=== PATIENT | male | born 1990 | race Two or more races ===

== ENCOUNTER 2017-12-13 19:22 | Inpatient (IN) | payer OTHER ==
[~2017-12-13] VITALS: Ht 167.6 cm; Wt 72.6 kg
[2017-12-14 09:00] VITALS: BP 140/94
--- NOTE | 2017-12-14 09:09 | NUR ---
PT RECEIVED DIRECT ADMIT VIA TRANSPORT TEAM, PLACED ON PB840 VENT W/ SETTINGS PER TRANSPORT RT AC 14 500 40% +5. PT TRACHED W/ PORTEX BIVONA 6, CLEAN, PATENT AND SECURE. BREATH SOUNDS EQUAL, CLEAR, WITH SOME RHONCHI. PT SX'ED AND LAVAGED PRN. VENT IN RED OUTLET, AMBUBAG AT BEDSIDE, DWYER AND HME CHANGED. VENT ALARMS SET AND AUDIBLE. NO RESP DISTRESS NOTED AT THIS TIME. PLAN IS TO CONTINUE W/ CURRENT CARE AND MONITOR FOR CHANGES. Addendum: 12/14/17 at 0913 by NICOLE KOROMA RT Amended: Links added.
--- NOTE | 2017-12-14 09:50 | NUR ---
ACCOUNT AUDITOR INITIAL NOTES RECEIVED PT VIA [facility] FROM [facility], PT CAME [place], PT ON VENT SETTINGS ORDERED BY MD TORRES 14 TV 500 FIO2 40% PEEP 5, SAT ABOVE 97%, BIVONA PORTEX 6, A&O X1-2 EYES OPEN, LUONG CATH DRAINING URINE VIA GRAVITY, ON TELE MON SR HR 76, WOUND PICTURES TAKEN AND PLACED IN CHART, WOUND CONSULT ORDERED, GTUBE AREA CLEANSED AND APPLIED NEW DRESSING, GTUBE CLAMPED, LT HAND 18 G IV SITE INTACT AND PATENT, ANDER MOTHER MAKES MEDICAL DECISIONS [phone], ALL SAFETY MEASURES INITIATED, ALL NEEDS MET, [facility] MATTRESS ON WILL CONTINUE TO MONITOR.
[2017-12-14 12:00] VITALS: BP 107/69
[2017-12-14] MEDS ORDERED: ONDANSETRON HCL/PF 4 MG/2 ML VIAL IVP PRN (12:00)
[2017-12-14] MEDS ORDERED: Z GUARD REMEDY 2 OZ OINT TP PRN (12:00)
[2017-12-14] MEDS ORDERED: MUPIROCIN OINT 2% 22 GM TUBE TP SCH (12:00)
[2017-12-14] MEDS: IV D5/0.45 NACL 1,000 ML IV PRN (12:09)
[2017-12-14] MEDS ORDERED: FEE PK DOSING 1 MIN EA MC ONE (14:22)
--- NOTE | 2017-12-14 15:04 | NUR ---
ABG ATTEMPTED TWICE UNSUCCESSFULLY, MOM AT BEDSIDE ASKED TO STOP. ABG ORDER LATER DC'ED BY MARTIR RIOS PER RN.
[2017-12-14] MEDS: MUPIROCIN OINT 2% 22 GM TUBE TP SCH (15:06)
[2017-12-14] MEDS: VANCOMYCIN 1 GM in IV D5W 250 ML IV SCH ×2 (15:06→22:45)
[2017-12-14] MEDS: ENOXAPARIN SODIUM 40 MG/0.4 ML DISP.SYRIN SQ SCH (15:07)
[2017-12-14 16:00] VITALS: BP 100/68
[2017-12-14 17:01] LABS: CALCIUM, SERUM 8.1 mg/dL (8.5-10.1); CREATININE 0.5 mg/dL (0.6-1.3); POTASSIUM 3.3 mmol/L (3.5-5.1)
--- NOTE | 2017-12-14 18:40 | NUR ---
SOFTWARE DEPLOYMENT ENGINEER NOTES SPOKE WITH DR SANTIAGO GI CONSULT AND STATED WILL COME SEE PT TOMORROW 12/15/17, CALLED AND LEFT MESSAGE TO MOTHER ANDER [phone] REGARDING THE STATUS OF GI DOCTOR.
--- NOTE | 2017-12-14 18:41 | NUR ---
LINE CONSTRUCTION ENGINEER ENDING NOTES PT STABLE WITH NO ACUTE CHANGES, AWAITING WOUND CONSULT AND GI CONSULT, ALL DUE MEDS GIVEN, ALL NEEDS MET, WILL ENDORSE TO PM NURSE.
[2017-12-14 20:00] VITALS: BP 113/70
[2017-12-15] VITALS: BP 109/65
[2017-12-15] MEDS: MUPIROCIN OINT 2% 22 GM TUBE TP SCH ×2 (03:41→15:57)
[2017-12-15 04:00] VITALS: BP 119/72
[2017-12-15] MEDS: IV D5/0.45 NACL 1,000 ML IV PRN ×2 (05:13→16:04)
--- NOTE | 2017-12-15 06:41 | NUR ---
RN NOTE PATIENT RESTED WELL AT NIGHT, NO PAIN OR DISCOMFORT NOTED, PATIENT IS STABLE, ALL SAFETY MEASURES TAKEN, WOUND CARE PROVIDED ORDERED PER MD, WILL ENDORSE TO AM SHIFT FOR ALFREDO
[2017-12-15] MEDS: VANCOMYCIN 1 GM in IV D5W 250 ML IV SCH (06:43)
[2017-12-15 07:15] LABS: BASOPHILS % (AUTO) 0.2 % (0.0-2.0); EOSINOPHILS % (AUTO) 2.9 % (0.0-6.0); HEMATOCRIT 39 % (39-51); HEMOGLOBIN 12.9 g/dL (13.5-17.5); LYMPHOCYTES # (AUTO) 2.2 /CMM (0.8-4.8); LYMPHOCYTES % (AUTO) 31.1 % (20.0-44.0); MEAN CORPUSCULAR HEMOGLOBIN 30 PG (26.0-33.0); MEAN CORPUSCULAR HGB CONC 33 g/dl (31.0-36.0); MEAN CORPUSCULAR VOLUME 89 fL (80-96); MONOCYTES # (AUTO) 1.1 /CMM (0.1-1.30); MONOCYTES % (AUTO) 15.1 % (2.0-12.0); NEUTROPHILS # (AUTO) 3.5 /CMM (1.8-8.9); NEUTROPHILS % (AUTO) 50.7 % (43.0-81.0); PLATELET COUNT (AUTO) 281 /CMM (150-450); RDW COEFFICIENT OF VARIATION 14.6 (11.5-15.0); RED BLOOD CELL COUNT(AUTO) 4.37 MIL/uL (4.5-6.0)
[2017-12-15 07:28] LABS: THYROID STIMULATING HORMONE 5.981 uIU/mL (0.358-3.74)
--- NOTE | 2017-12-15 07:30 | NUR ---
INITIAL NOTES: RECEIVED PT ON BED VENTILATOR DEPENDENT SETTINGS: cONTROL 14, 500, +5 AND 40% PT HAS #6 BIVONA PORTEX TRACH SATURATION ABOVE 97% A&O X1-2 EYES OPEN, LUONG CATH DRAINING URINE VIA GRAVITY, ON TELE MON SR HR 76, WOUND CONSULT ORDERED, GTUBE AREA CLEANSED AND APPLIED NEW DRESSING, GTUBE CLAMPED, LT HAND 18 G IV SITE INTACT AND PATENT, ANDER MOTHER MAKES MEDICAL DECISIONS [phone], ALL SAFETY MEASURES INITIATED, ALL NEEDS METON FLOATATION MATTRESS WILL CONTINUE TO MONITOR.
[2017-12-15 07:48] LABS: ALBUMIN 3.4 g/dL (3.4-5.0); BILIRUBIN,TOTAL 0.3 mg/dL (0.2-1.0); CALCIUM, SERUM 8.3 mg/dL (8.5-10.1); CREATININE 0.5 mg/dL (0.6-1.3); MAGNESIUM 2.1 mg/dL (1.8-2.4); PHOSPHORUS 2.9 mg/dL (2.5-4.9); POTASSIUM 3.4 mmol/L (3.5-5.1); TOTAL PROTEIN, SERUM 8.1 g/dL (6.4-8.2)
[2017-12-15 08:00] VITALS: BP_SYST 109; BP_SYST 120; BP_DIAS 76; BP_DIAS 77
[2017-12-15] MEDS: ENOXAPARIN SODIUM 40 MG/0.4 ML DISP.SYRIN SQ SCH (09:37)
[2017-12-15 10:19] LABS: EOSINOPHILS % (MANUAL) 2 % (0-4); LYMPHOCYTES % (MANUAL) 35 % (16-48); MONOCYTES % (MANUAL) 11 % (0-11.0); NEUTROPHILS % (MANUAL) 52 (42-76)
--- NOTE | 2017-12-15 10:52 | NUR ---
WOUND CARE CONSULT: PT FOLLOWED BY GI FOR G TUBE AREA. DEFER TO GI . PT PRESENTS WITH RASH TO PERINEUM AND INNER BUTTOCKS, PRESENT ON ADMISSION. RECOMMENDATIONS MADE FOR RASH CARE AND SKIN PROTECTION. DISCUSSED WITH NURSING STAFF. PT ON WACO ISOFLEX LOW AIRLOSS BED. WILL SEE PRN. BATES IN AGREEMENT WITH PLAN OF CARE. Addendum: 12/15/17 at 1055 by GAEL GRIFFITH WNDNU Amended: Links added.
[2017-12-15 12:00] VITALS: BP 109/76
[2017-12-15] MEDS ORDERED: POLYVINYL ALCOHOL 15 ML BOTTLE EACHEYE PRN (12:00)
[2017-12-15] MEDS: IPRATROPIUM NEB FS 0.5 MG/2.5 ML AMPUL.NEB NEB SCH ×2 (13:05→20:04)
[2017-12-15] MEDS: ALBUTEROL FS 2.5 MG/0.5 ML VIAL.NEB NEB SCH ×2 (13:05→20:04)
[2017-12-15] MEDS: PANTOPRAZOLE 40 MG VIAL IV SCH (13:08)
[2017-12-15] MEDS: POTASSIUM CL. PREMIX PERIPHER. 50 ML IV SCH ×2 (13:09→14:18)
[2017-12-15] MEDS ORDERED: POTASSIUM CL. PREMIX PERIPHER. 50 ML IV SCH (14:30)
[2017-12-15 16:00] VITALS: BP 118/82
[2017-12-15] MEDS: CLOTRIMAZOLE/BETAMETASONE DIPROPIONATE 15 GM TUBE TP SCH (16:56)
--- NOTE | 2017-12-15 18:43 | NUR ---
CLOSING: PATIENT RESTED WELL TODAY. MOTHER VISITED. PT HAS CONSENT FOR EGD AND G-TUBE PLACEMENT . LUONG DRAING WELL PIV IN USE NO REDNESS OR SWELLING NOTED. WILL ENDORSE CARE TO SENIOR PRODUCT MARKETING MANAGER RN, NO PAIN OR DISCOMFORT NOTED, PATIENT IS STABLE, ALL SAFETY MEASURES TAKEN, WOUND CARE PROVIDED ORDERED PER MD.
[2017-12-15 20:00] VITALS: BP 127/80
[2017-12-16] VITALS: BP 100/65
[2017-12-16] MEDS: ALBUTEROL FS 2.5 MG/0.5 ML VIAL.NEB NEB SCH ×4 (00:55→20:24)
[2017-12-16] MEDS: IPRATROPIUM NEB FS 0.5 MG/2.5 ML AMPUL.NEB NEB SCH ×4 (00:55→20:24)
[2017-12-16 04:00] VITALS: BP 107/78
[2017-12-16] MEDS: MUPIROCIN OINT 2% 22 GM TUBE TP SCH ×2 (04:00→15:52)
[2017-12-16] MEDS: IV D5/0.45 NACL 1,000 ML IV PRN (05:30)
--- NOTE | 2017-12-16 06:43 | NUR ---
RN NOTE NO ACUTE CHANGES ON MY SHIFT, PATIENT RESTED WELL AT NIGHT, WOUND CARE PROVIDED ORDERED, PATIENT IS STABLE, ALL SAFETY MEASURES TAKEN, WILL ENDORSE TO AM SHIFT FOR ALFREDO
[2017-12-16 07:51] LABS: CALCIUM, SERUM 8.3 mg/dL (8.5-10.1); CREATININE 0.4 mg/dL (0.6-1.3); POTASSIUM 3.2 mmol/L (3.5-5.1)
--- NOTE | 2017-12-16 07:53 | NUR ---
HOG SAWYER NOTES: RECEIVED PT ON BED ASLEEP. NO APPARENT DISTRESS NOTED. NO FACIAL GRIMACING OR ANY SIGNS OF PAIN NOTED. ON MECH VENT, SETTINGS ORDERED, SATURATING WELL. NO SOB NOTED. IV ON LEFT HAND INTACT AND PATENT WITH IVF D5 1/2NS AT 75ML/HR, INFUSING WELL. LUONG CATH INTACT AND PATENT WITH CLEAR YELLOW URINE DRAINING. KEPT CLEAN, DRY AND COMFORTABLE. WILL CONTINUE TO MONITOR PT.
[2017-12-16 08:00] VITALS: BP 116/70
[2017-12-16 08:09] LABS: BASOPHILS % (AUTO) 0.5 % (0.0-2.0); EOSINOPHILS % (AUTO) 2.8 % (0.0-6.0); HEMATOCRIT 35 % (39-51); HEMOGLOBIN 11.6 g/dL (13.5-17.5); LYMPHOCYTES # (AUTO) 1.5 /CMM (0.8-4.8); LYMPHOCYTES % (AUTO) 30.4 % (20.0-44.0); MEAN CORPUSCULAR HEMOGLOBIN 29 PG (26.0-33.0); MEAN CORPUSCULAR HGB CONC 33 g/dl (31.0-36.0); MEAN CORPUSCULAR VOLUME 89 fL (80-96); MONOCYTES # (AUTO) 0.8 /CMM (0.1-1.30); MONOCYTES % (AUTO) 16.7 % (2.0-12.0); NEUTROPHILS # (AUTO) 2.5 /CMM (1.8-8.9); NEUTROPHILS % (AUTO) 49.6 % (43.0-81.0); PLATELET COUNT (AUTO) 251 /CMM (150-450); RDW COEFFICIENT OF VARIATION 14.1 (11.5-15.0); RED BLOOD CELL COUNT(AUTO) 3.95 MIL/uL (4.5-6.0); WHITE BLOOD COUNT (AUTO) 5.1 K/uL (4.3-11.0)
--- NOTE | 2017-12-16 08:11 | NUR ---
LANDING WORKER NOTES: ON TELE MONITOR SINUS [place] HR 54BPM.
[2017-12-16] MEDS: ENOXAPARIN SODIUM 40 MG/0.4 ML DISP.SYRIN SQ SCH (08:32)
[2017-12-16] MEDS: CLOTRIMAZOLE/BETAMETASONE DIPROPIONATE 15 GM TUBE TP SCH ×3 (08:34→16:10)
--- NOTE | 2017-12-16 08:42 | NUR ---
DIRECTOR CAMP NOTES: LOVENOX NOT GIVEN BECAUSE PT IS SCHEDULED FOR SURGERY TODAY.
[2017-12-16] MEDS: VANCOMYCIN 0.75 GM in IV NS 0.9% 250 ML IV SCH ×2 (09:14→16:09)
[2017-12-16] MEDS: POTASSIUM CL. PREMIX PERIPHER. 50 ML IV SCH ×4 (11:20→14:27)
[2017-12-16] MEDS: PANTOPRAZOLE 40 MG VIAL IV SCH (11:59)
[2017-12-16 12:00] VITALS: BP 117/76
--- NOTE | 2017-12-16 14:08 | NUR ---
PT AI'D ON MECHANICAL VENT WITH CHARTED SETTINGS. TXS GIVEN AND NO ADVERSE REACTION NOTED. SX DONE T/O SHIFT. PT AI PATENT AND SECURE. AMBU BAG AT BEDSIDE. VENT PLUGGED INTO RED OUTLET. ALARMS ARE ON AND AUDIBLE. WILL CONTINUE TO MONITOR. Addendum: 12/16/17 at 1408 by JAYE BAUTISTA RT Amended: Links added.
[2017-12-16 16:00] VITALS: BP 107/66
--- NOTE | 2017-12-16 18:56 | NUR ---
TELECOM ENGINEER NOTES: NO ACUTE CHANGES THROUGHOUT THE SHIFT. NO FACIAL GRIMACING OR ANY SIGNS OF PAIN NOTED. NO SOB, SATURATING WELL. LUONG CATH INTACT AND PATENT WITH CLEAR YELLOW URINE DRAINING. KEPT CLEAN, DRY AND COMFORTABLE. WILL ENDORSE TO PROJECT DEVELOPMENT COORDINATOR FOR CONTINUITY OF CARE
--- NOTE | 2017-12-16 19:30 | NUR ---
RN initial notes Received patient with no acute distress. on Vent support, tolerating current settings well. Airway suctioned as needed, small amount of frothy, white sputum was suctioned. GT clamped, awaiting EGD with PEG placement as ordered by Dr. Pizano. Patient noted to be SR-SB at 50-60s. Skin assessment done, noted patient with lower back rashes, wound on Bilateral anterior foot noted. Pictures taken and filed in chart. will order wound consult for further eval. Patient to be turned [id number] and prn for comfort. L hand g18, intact and patent, IVF as ordered. F/C intact, draining with pale, yellow urine. Will continue to monitor. closely monitored.
[2017-12-16 20:00] VITALS: BP 109/60
[2017-12-17] VITALS: BP 116/55
[2017-12-17] MEDS: VANCOMYCIN 0.75 GM in IV NS 0.9% 250 ML IV SCH ×2 (00:12→08:57)
[2017-12-17] MEDS: IV D5/0.45 NACL 1,000 ML IV PRN ×2 (01:30→17:57)
[2017-12-17] MEDS: IPRATROPIUM NEB FS 0.5 MG/2.5 ML AMPUL.NEB NEB SCH ×4 (01:37→19:47)
[2017-12-17] MEDS: ALBUTEROL FS 2.5 MG/0.5 ML VIAL.NEB NEB SCH ×4 (01:39→19:47)
[2017-12-17 04:00] VITALS: BP 99/63
[2017-12-17] MEDS: MUPIROCIN OINT 2% 22 GM TUBE TP SCH ×2 (05:14→15:32)
--- NOTE | 2017-12-17 06:23 | NUR ---
RN CLOSING NOTE Sinus Darvin overnight. Patients HR noted to be in the 40s at rest/sleeping, goes up to 50-60s with stimuli. wound treatment rendered, skin barrier applied for skin management. trach care done, airway kept patent and clear. F/C intact and draning well. IVF as ordered. turned and repositioned [id number] and prn for comfort. needs anticipated. safety and comfort ensured. will endorse accordingly for continuity of care.
--- NOTE | 2017-12-17 07:00 | NUR ---
RN NOTES RECEIVED PT ON BED, OBTUNDED, VENT/TRACH DEPENDENT, TOLERATING CURRENT VENT SETTING WELL, TRACH CARE DONE, NO DISTRESS NOTED, ON TELE , SB , HR IN HIGH 40'S, LUONG DRINING TO GRAVITY , PT IS NPO, GT CLAMPED, D51/2 NS AT 75CC/HR RUNNING VIA L HAND IV ITE G 18, SITE CLEAN , DRY, INTACT, SR UP x3, CALL LIGHT WITHIN EASY REACH, BED LOCKED AND IN LOWEST POSITION, CONTINUE TO MONITOR.
--- NOTE | 2017-12-17 07:01 | NUR ---
WOUND CARE CONSULT PATIENT SEEN AND SKIN INTEGRITY ASSESSMENT DONE. PLEASE SEE MAINTENANCE MILLWRIGHT ASSESSMENT IN PCS FOR TODAY. TREATMENT RECOMMENDATIONS MADE. ALL DISCUSSED WITH SUCTION PLATE CARRIER CLEANER AND PRIMARY RN AT THE BEDSIDE. ALL PRESSURE ULCER PREVENTION MEASURES ARE NOTED TO BE IN PLACE AT THIS TIME. PATIENT CONTINUES ON ISOFLEX LOW AIRLOSS SPECIALTY BED. PT NOTED TO HAVE SEVERE FOOT DROP AND DEFORMITY OF BILATERAL FEET. Addendum: 12/17/17 at 0705 by KATE PHILIPPE WNDNU Amended: Links added.
[2017-12-17 07:29] LABS: CALCIUM, SERUM 8.3 mg/dL (8.5-10.1); CREATININE 0.4 mg/dL (0.6-1.3); POTASSIUM 3.6 mmol/L (3.5-5.1)
--- NOTE | 2017-12-17 07:35 | NUR ---
RT RECEIVED PT TRACH VENT DEPENDENT WITH NOTED SETTINGS. RELEASE AND TECHNICAL RECORDS CLERK DONE AND TRACH IS SECURE. VENT ALARMS CHECKED AND AUDIBLE. VENT PLUGGED IN RED OUTLET. AMBU BAG NOTED HOB. BILATERAL B/S RHONCHI. SX WITH MOD THK WHITE/NICOLE SECRETIONS. TOLERATING SETTINGS WELL, BREATHING TX GIVEN. NO SOB OR RESP DISTRESS NOTED AT THIS TIME, WILL CONTINUE TO MONITOR T/O SHIFT.
[2017-12-17 07:42] LABS: INR 1.02 (0.87-1.13)
[2017-12-17 08:00] VITALS: BP 117/82
[2017-12-17] MEDS: ENOXAPARIN SODIUM 40 MG/0.4 ML DISP.SYRIN SQ SCH (08:09)
--- NOTE | 2017-12-17 09:00 | NUR ---
RN NOTES ON TELE ABNORMAL HEART RYTHEM NOTED, DR. GAN AND GARRY RENAE SAUSAGE TIER NOTIFED, CONTINUE TO MONITOR.
[2017-12-17] MEDS: BACITRACIN/POLYMYXIN B 15 GM TUBE TP SCH (09:26)
[2017-12-17] MEDS: CLOTRIMAZOLE/BETAMETASONE DIPROPIONATE 15 GM TUBE TP SCH ×3 (09:27→21:40)
[2017-12-17] MEDS: PANTOPRAZOLE 40 MG VIAL IV SCH (11:36)
[2017-12-17] MEDS ORDERED: ETOMIDATE 2 MG/ML VIAL ONE (11:54)
[2017-12-17 12:00] VITALS: BP 134/76
[2017-12-17] MEDS ORDERED: JEVITY 1.2 CAL 1,000 ML BOTTLE GT PRN (15:00)
--- NOTE | 2017-12-17 15:31 | NUR ---
RN NOTES TF RESTARTED AT 30CC/HR PER PER DR ORELLANA ORDER . CONTINUE TO MONITOR .
[2017-12-17 16:00] VITALS: BP_SYST 125; BP_SYST 132; BP_DIAS 75; BP_DIAS 77
[2017-12-17] MEDS: VANCOMYCIN 0.75 GM in IV D5W 250 ML IV SCH (17:59)
--- NOTE | 2017-12-17 18:38 | NUR ---
RN NOTES TOLERANT TF AT 30CC/HR WELL , NO LEAKAGE NOTED AT THE GT SITE AT THIS TIME , D51/2NS AT 75CC/HR RUNNING WELL, SR UP x3, CALL LIGHT WITHIN EASY REACH, BED LOCKED AND IN LOWEST POSITION, WILL ENDOSE TO ADMITTING COORDINATOR NURSE FOR CONTINUITY OF CARE .
[2017-12-17 20:00] VITALS: BP_SYST 108; BP_SYST 127; BP_DIAS 37; BP_DIAS 82
--- NOTE | 2017-12-17 20:00 | NUR ---
RN initial notes Received patient with no acute distress. on Vent support, tolerating current settings well. Airway suctioned as needed, small amount of frothy, white sputum was suctioned. GT clamped, awaiting EGD with PEG placement as ordered by Dr. Pizano. Patient noted to be SR-SB at 50-60s. Skin assessment done, noted patient with lower back rashes, wound on Bilateral anterior foot noted. Pictures taken and filed in chart. will order wound consult for further eval. Patient to be turned [id number] and prn for comfort. L hand g18, intact and patent, IVF as ordered. F/C intact, draining with pale, yellow urine. Will continue to monitor. closely monitored.
[2017-12-18] VITALS: BP 107/82
[2017-12-18] MEDS: IPRATROPIUM NEB FS 0.5 MG/2.5 ML AMPUL.NEB NEB SCH ×2 (01:15→07:35)
[2017-12-18] MEDS: ALBUTEROL FS 2.5 MG/0.5 ML VIAL.NEB NEB SCH ×2 (01:15→07:35)
[2017-12-18] MEDS: MUPIROCIN OINT 2% 22 GM TUBE TP SCH ×2 (03:49→15:18)
[2017-12-18 04:00] VITALS: BP_SYST 108; BP_SYST 98; BP_DIAS 65; BP_DIAS 82
[2017-12-18] MEDS: CLOTRIMAZOLE/BETAMETASONE DIPROPIONATE 15 GM TUBE TP SCH ×3 (04:47→21:45)
[2017-12-18] MEDS: VANCOMYCIN 0.75 GM in IV D5W 250 ML IV SCH ×2 (04:49→17:42)
--- NOTE | 2017-12-18 06:49 | NUR ---
Rn closing notes No acute change in condition observed overnight. No distress. Pt tolerating GTF, no gastric residual noted. Airway kept patent, suctioned as needed, breathing tx at ordered. Patient turned and repositioned Q2. All needs anticipated and met. Safety and comfort ensured. Will endorse accordingly for continuity of care.
[2017-12-18 07:11] LABS: CALCIUM, SERUM 8.3 mg/dL (8.5-10.1); CREATININE 0.4 mg/dL (0.6-1.3); POTASSIUM 3.7 mmol/L (3.5-5.1)
[2017-12-18 08:00] VITALS: BP 100/70
[2017-12-18] MEDS: BACITRACIN/POLYMYXIN B 15 GM TUBE TP SCH (10:01)
[2017-12-18] MEDS: ENOXAPARIN SODIUM 40 MG/0.4 ML DISP.SYRIN SQ SCH (10:01)
[2017-12-18 12:00] VITALS: BP 100/70
[2017-12-18] MEDS: PANTOPRAZOLE 40 MG VIAL IV SCH ×2 (12:16→21:45)
[2017-12-18] MEDS: IV D5/0.45 NACL 1,000 ML IV PRN ×2 (13:03→21:55)
[2017-12-18] MEDS ORDERED: VITAL AF 1.2 1,000 ML BOTTLE GT PRN (15:30)
--- NOTE | 2017-12-18 16:00 | NUR ---
rn note pt had 2 large black liquid stools, SEAT COVER INSTALLER Joaquín notified, low body temp rectally 95.4 f reported as well, pt under bear hugger blanket to warm him up. will monitor pt and carry out any further orders.
[2017-12-18 17:41] VITALS: BP 104/60
[2017-12-18] MEDS ORDERED: IV NS 0.9% 500 ML IV ONE (18:00)
[2017-12-18 18:54] LABS: BASOPHILS % (AUTO) 0.5 % (0.0-2.0); EOSINOPHILS % (AUTO) 2.1 % (0.0-6.0); HEMATOCRIT 26 % (39-51); LYMPHOCYTES # (AUTO) 1.1 /CMM (0.8-4.8); LYMPHOCYTES % (AUTO) 24.4 % (20.0-44.0); MEAN CORPUSCULAR HEMOGLOBIN 29 PG (26.0-33.0); MEAN CORPUSCULAR HGB CONC 31 g/dl (31.0-36.0); MEAN CORPUSCULAR VOLUME 93 fL (80-96); MONOCYTES # (AUTO) 0.5 /CMM (0.1-1.30); MONOCYTES % (AUTO) 11.7 % (2.0-12.0); NEUTROPHILS # (AUTO) 2.9 /CMM (1.8-8.9); NEUTROPHILS % (AUTO) 61.3 % (43.0-81.0); PLATELET COUNT (AUTO) 183 /CMM (150-450); RDW COEFFICIENT OF VARIATION 15.8 (11.5-15.0); RED BLOOD CELL COUNT(AUTO) 2.77 MIL/uL (4.5-6.0); WHITE BLOOD COUNT (AUTO) 4.7 K/uL (4.3-11.0)
[2017-12-18 18:58] LABS: APPEARANCE,URINE SL CLOUDY (CLEAR); BILIRUBIN,URINE NEGATIVE (NEGATIVE); BLOOD, URINE 2+ Ery/uL (NEGATIVE); COLOR,URINE YELLOW (YELLOW); KETONES,URINE NEGATIVE (NEGATIVE); LEUKOCYTE ESTERASE ,URINE 2+ (NEGATIVE); NITRITE, URINE NEGATIVE (NEGATIVE); PROTEIN,URINE TRACE mg/dl (NEGATIVE); UGLUCOSE NEGATIVE (NEGATIVE); UROBILINOGEN,URINE 0.2 EU/dL (0.2)
[2017-12-18 19:12] LABS: BACTERIA,URINE Many /HPF (None Seen); HYALINE CASTS, URINE Few /LPF (None Seen); SQUAMOUS EPITHELIAL CELL,UR Moderate /HPF (None Seen); WBC,URINE 21-50 /HPF (0-3)
[2017-12-18 19:14] LABS: OCCULT BLOOD STOOL POSITIVE (NEGATIVE)
[2017-12-18 20:00] VITALS: BP 120/66
--- NOTE | 2017-12-18 20:00 | NUR ---
RN initial notes Received patient with no acute distress. On Vent support, tolerating current settings well. Airway suctioned as needed, small amount of frothy, white sputum was suctioned. GT clamped. Patient noted to be St 125. Skin assessment done, noted patient with lower back rashes, wound on Bilateral anterior foot noted. Pictures taken and filed in chart. will order wound consult for further eval. Patient to be turned [id number] and prn for comfort. L hand g18, intact and patent, IVF as ordered. F/C intact, draining with pale, yellow urine. flexiseal inplace. Will continue to monitor. Will closely monitored.
[2017-12-19] VITALS: BP 117/69
[2017-12-19] MEDS: MUPIROCIN OINT 2% 22 GM TUBE TP SCH ×2 (03:17→14:40)
[2017-12-19 04:00] VITALS: BP 108/62
[2017-12-19] MEDS: VANCOMYCIN 0.75 GM in IV D5W 250 ML IV SCH ×3 (05:24→18:48)
[2017-12-19] MEDS: IV D5/0.45 NACL 1,000 ML IV PRN (05:30)
[2017-12-19] MEDS: CLOTRIMAZOLE/BETAMETASONE DIPROPIONATE 15 GM TUBE TP SCH ×3 (05:33→21:00)
--- NOTE | 2017-12-19 06:56 | NUR ---
rn closing notes No acute change in condition observed overnight. No distress. Pt npo. Airway kept patent, suctioned as needed, breathing tx at ordered. Patient turned and repositioned Q2. All needs anticipated and met. Safety and comfort ensured. Will endorse accordingly for continuity of care.
[2017-12-19 06:58] LABS: BASOPHILS % (AUTO) 0.2 % (0.0-2.0); EOSINOPHILS % (AUTO) 1.6 % (0.0-6.0); HEMATOCRIT 32 % (39-51); HEMOGLOBIN 10.6 g/dL (13.5-17.5); LYMPHOCYTES # (AUTO) 1.8 /CMM (0.8-4.8); LYMPHOCYTES % (AUTO) 31.1 % (20.0-44.0); MEAN CORPUSCULAR HEMOGLOBIN 30 PG (26.0-33.0); MEAN CORPUSCULAR HGB CONC 34 g/dl (31.0-36.0); MEAN CORPUSCULAR VOLUME 88 fL (80-96); MONOCYTES # (AUTO) 0.7 /CMM (0.1-1.30); MONOCYTES % (AUTO) 12.2 % (2.0-12.0); NEUTROPHILS # (AUTO) 3.1 /CMM (1.8-8.9); NEUTROPHILS % (AUTO) 54.9 % (43.0-81.0); PLATELET COUNT (AUTO) 264 /CMM (150-450); RDW COEFFICIENT OF VARIATION 14.9 (11.5-15.0); RED BLOOD CELL COUNT(AUTO) 3.59 MIL/uL (4.5-6.0); WHITE BLOOD COUNT (AUTO) 5.6 K/uL (4.3-11.0)
[2017-12-19 07:20] LABS: CREATININE 0.5 mg/dL (0.6-1.3); POTASSIUM 3.8 mmol/L (3.5-5.1)
[2017-12-19 08:00] VITALS: BP_SYST 108; BP_SYST 125; BP_DIAS 62; BP_DIAS 68
[2017-12-19] MEDS: ENOXAPARIN SODIUM 40 MG/0.4 ML DISP.SYRIN SQ SCH (09:00)
--- NOTE | 2017-12-19 09:00 | NUR ---
RN NOTE MORNING DOSE OF LOVENOX HELD DUE TO POSSIBLE BLEEDING IN GI AND LARGE TARRY STOOL.
[2017-12-19] MEDS: BACITRACIN/POLYMYXIN B 15 GM TUBE TP SCH (11:11)
[2017-12-19] MEDS: PANTOPRAZOLE 40 MG VIAL IV SCH ×2 (11:11→21:00)
[2017-12-19 12:00] VITALS: BP_SYST 116; BP_DIAS 62; BP_DIAS 75
[2017-12-19] MEDS ORDERED: SIMETHICONE SUSP 40 MG/0.6 ML BOTTLE GT SCH (14:30)
[2017-12-19] MEDS ORDERED: MAG HYDROX/AL HYDROX/SIMETH 30 ML UDC TP PRN (15:00)
[2017-12-19 16:00] VITALS: BP 111/72
[2017-12-19 20:00] VITALS: BP 110/64
--- NOTE | 2017-12-19 20:00 | NUR ---
RN initial notes Received patient with no acute distress. On Vent support, tolerating current settings well. GT clamped. Patient noted to be SR 62. L hand g18, intact and patent, IVF as ordered. F/C intact, draining with pale, yellow urine. flexi seal in place. Will continue to monitor. Will closely monitored.
[2017-12-19] MEDS ORDERED: DIATR MEGLU/DIATRIZOATE SODIUM 30 ML BOTTLE (GASTROGRAPHIN) ONE (20:36)
--- NOTE | 2017-12-19 20:40 | NUR ---
Rn Notes xray abdomen KUB DONE, GASTROGRAPHIN INSERTED IN PEG TUBE.
[2017-12-20] VITALS: BP 143/97
--- NOTE | 2017-12-20 03:30 | NUR ---
Rn notes PT HR 43-45, temp 93.2 b/p 138/88. Md MCGEE NOTIFIED. VALE SANTOYO PLACED ON PT. WILL CONT TO CLOSELY MONITOR.
[2017-12-20] MEDS: BACITRACIN/POLYMYXIN B 15 GM TUBE TP SCH ×2 (03:59→04:00)
[2017-12-20 04:00] VITALS: BP 144/70
[2017-12-20] MEDS: MUPIROCIN OINT 2% 22 GM TUBE TP SCH ×2 (04:01→15:42)
[2017-12-20] MEDS: CLOTRIMAZOLE/BETAMETASONE DIPROPIONATE 15 GM TUBE TP SCH ×3 (04:03→20:49)
[2017-12-20] MEDS: VANCOMYCIN 0.75 GM in IV D5W 250 ML IV SCH ×2 (05:14→17:11)
--- NOTE | 2017-12-20 07:45 | NUR ---
Rn closing notes Pt kept npo. Airway kept patent, suctioned as needed, breathing tx at ordered. Patient turned and repositioned Q2. All needs anticipated and met. Safety and comfort ensured. Will endorse accordingly for continuity of care.
--- NOTE | 2017-12-20 07:50 | NUR ---
RN NOTE RECEIVED PATIENT AWAKE, PATIENT IS ABLE TO OPEN EYES WITH TACTILE STIMULI. VENT/TRACH DEPENDENT WITH APPROPRIATE SETTINGS. NO DISTRESS NOTED. ON BICYCLE TAXI DRIVER SINUS RHYTHM HR OF 82. FLEXISEAL INTACT PATENT. F/C INTACT AND PATENT WITH ADEQUATE FLOW OF URINE NOTED. PATIENT IS CURRENTLY NPO ORDERED. LEFT HAND IV SITE INTACT AND PATENT. ALL SAFETY MEASURES DONE. BED LOW AND LOCKED POSITION. PLACED CALL LIGHT WITHIN REACH. WILL CONTINUE TO MONITOR.
[2017-12-20 08:00] VITALS: BP 112/70
[2017-12-20] MEDS: PANTOPRAZOLE 40 MG VIAL IV SCH ×2 (08:23→20:48)
[2017-12-20] MEDS: ENOXAPARIN SODIUM 40 MG/0.4 ML DISP.SYRIN SQ SCH (08:24)
[2017-12-20 10:36] LABS: CALCIUM, SERUM 8.4 mg/dL (8.5-10.1); CREATININE 0.5 mg/dL (0.6-1.3); POTASSIUM 3.6 mmol/L (3.5-5.1)
[2017-12-20 12:00] VITALS: BP 111/61
--- NOTE | 2017-12-20 14:10 | NUR ---
RN NOTE SEEN BY MICHAEL HEARD TO TO START TUBE FEEDINGS ON PATIENT VITAL AF 1.2 20ML/HR WITH GOAL RATE 60ML/HR. CARRIED AND NOTED.
[2017-12-20 16:00] VITALS: BP 110/71
[2017-12-20] MEDS: IV D5/0.45 NACL 1,000 ML IV PRN (16:39)
--- NOTE | 2017-12-20 19:22 | NUR ---
RN NOTE PATIENT REMAINED STABLE THROUGHOUT SHIFT. NO ACUTE DISTRESS OR CHANGES NOTED. PATIENT IS TOLERATING TUBE FEEDINGS. WILL ENDORSE TO NEXT SHIFT TO CONTINUE TO MONITOR CONTINUITY OF CARE.
[2017-12-20 20:00] VITALS: BP 96/54
--- NOTE | 2017-12-20 22:05 | NUR ---
RN NOTES RAÚL PICC LINE NURSE INSERTED PICC LINE ON PATIENT'S RIGHT UPPER ARM. XRAY DONE TO VERIFY PLACEMENT. FLUSHES EASY WITH GOOD BLOOD RETURN. ENSURE REFUSED BY PATIENT. OFFERED 3 TIMES EXPLAINED RISKS AND BENEFITS. PATIENT VERBALIZED IT GIVES HER GAS. DIAZOXIDE MEDICATION UNAVAILABLE AT THIS TIME. WILL FOLLOW UP WITH PHARMACY
[2017-12-21] VITALS: BP 106/66
[2017-12-21] MEDS: MUPIROCIN OINT 2% 22 GM TUBE TP SCH ×2 (03:28→15:00)
[2017-12-21 04:00] VITALS: BP 96/56
[2017-12-21] MEDS: VANCOMYCIN 0.75 GM in IV D5W 250 ML IV SCH (05:00)
[2017-12-21] MEDS: CLOTRIMAZOLE/BETAMETASONE DIPROPIONATE 15 GM TUBE TP SCH ×2 (05:01→12:01)
[2017-12-21 06:42] LABS: CALCIUM, SERUM 8.3 mg/dL (8.5-10.1); CREATININE 0.6 mg/dL (0.6-1.3); POTASSIUM 3.3 mmol/L (3.5-5.1)
[2017-12-21 08:00] VITALS: BP 123/77
[2017-12-21] MEDS: PANTOPRAZOLE 40 MG VIAL IV SCH (08:10)
[2017-12-21] MEDS: BACITRACIN/POLYMYXIN B 15 GM TUBE TP SCH (08:11)
[2017-12-21] MEDS: ENOXAPARIN SODIUM 40 MG/0.4 ML DISP.SYRIN SQ SCH (08:12)
[2017-12-21 10:00] VITALS: BP 123/77
[2017-12-21] MEDS ORDERED: POTASSIUM CHLORIDE 20 MEQ TAB.PRT.SR PO SCH (11:00)
[2017-12-21] MEDS ORDERED: POTASSIUM CHLORIDE 20 MEQ POWDER PACKET NG SCH (11:00)
[2017-12-21 12:00] VITALS: BP 117/73
[2017-12-21] MEDS ORDERED: BACI28.33 TP (13:59)
[2017-12-21] MEDS ORDERED: CLOT15CR5 TP (13:59)
[2017-12-21 16:00] VITALS: BP 140/78
--- NOTE | 2017-12-21 17:38 | NUR ---
rn note pt discharged home with home health, in stable condition, exit care done, discharge instructions provided to pt's mother, Riri. Riri verbalized understanding, pt unable to comprehend, pictures taken wound care instructions provided to motherRiri. no belongings, iv removed, id band removed, f/c removed, pt voided, flexiseal tube removed, pt left via ambulance. j-tube and trach in place. ppaers given to ambulance.
== END 2017-12-21 17:32 | disposition home or self-care (01) | DRG 252 ==
LOC: TELE1 12-14 08:49
PROVIDERS: ADMIT Nurse Practitioner Acute Care; ATTEND Nurse Practitioner Acute Care
PROC: 5A1955Z Respiratory Ventilation, Greater than 96 Consecutive Hours (ICD-10-PCS; principal; 2017-12-14)
PROC: 0DJ08ZZ Inspection of Upper Intestinal Tract, Via Natural or Artificial Opening Endoscopic (ICD-10-PCS; 2017-12-19)
DX: K94.22 Gastrostomy infection (principal); R40.3 Persistent vegetative state; Z99.11 Dependence on respirator [ventilator] status; J96.11 Chronic respiratory failure with hypoxia; R13.10 Dysphagia, unspecified; L03.311 Cellulitis of abdominal wall; Z87.820 Personal history of traumatic brain injury; M24.50 Contracture, unspecified joint; Z90.81 Acquired absence of spleen; M62.50 Muscle wasting and atrophy, not elsewhere classified, unspecified site; Z98.890 Other specified postprocedural states; E87.6 Hypokalemia; I44.1 Atrioventricular block, second degree; D64.9 Anemia, unspecified; K20.9 Esophagitis, unspecified; R00.1 Bradycardia, unspecified; L53.9 Erythematous condition, unspecified; K29.71 Gastritis, unspecified, with bleeding
CPT/HCPCS: 31720; 36415; 71045-TC; 74018; 80048-TC; 80053-TC; 80061-TC; 80202-TC; 81000-TC; 82272-TC; 83735-TC; 84100-TC; 84443-TC; 85025-TC; 85610-TC; 86850-TC; 87081-TC; 87086-TC; 94002-TC; 94003-TC; 94760-TC; 94762-TC; A4217; A4606; A6253; A6402; A6403; C9113; J1650; J3370; J3480; J3490; J7040; J7050; J7060; Q9963; Z7610